=== PATIENT | male | born 1985 | race Caucasian/White ===

== ENCOUNTER 2018-07-29 10:48 | Outpatient (CLI) | payer OTHER ==
--- NOTE | 2018-07-29 12:28 | MRI ---
MRI OF RIGHT HIP PERFORMED WITHOUT CONTRAST ENHANCEMENT: HISTORY: Bilateral hip pain, left worse than right. FINDINGS: SI joints appear fairly symmetric. There is evidence for avascular necrosis of the right hip. There is a somewhat serpiginous T1 and T2 signal change involving the articular surface of the femoral head. There is no significant bony col lapse seen at this time. The femoral head maintains its fairly normal spherical shape. The gluteus minimus and medias tendon insertions appear unremarkable. IMPRESSION: Findings compatible with avascular necrosis of the right hip. POS: YOSVANY
--- NOTE | 2018-07-29 12:33 | MRI ---
LEFT HIP MRI WITHOUT IV CONTRAST: HISTORY: A 33-year-old male with a history of bilateral hip pain worse on the left. Multiplanar, multisequence MRI examination of the left hip is performed. There is extensive abnormal signal within the left femoral head, evidence for avascular necrosis with some subchondral collapse and extensive marrow edema extending into the femoral neck and into the intertrochanteric region. Th ere appears to be a small femoral bump of the femoral head and neck junction laterally, evidence for the possibility of some femoral acetabular impingement. Abnormal signal associated with the anterior labrum, evidence for an anterior labral tear. Evidence for some joint effusion. 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 Additionally, there is evidence for femoral acetabular impingement with associated anteri or labral tear. POS: MILLIE
== END 2018-07-29 10:49 | disposition home or self-care (01) ==
LOC: BICMRI 10:48
PROVIDERS: ATTEND Family Medicine
DX: M87.052 Idiopathic aseptic necrosis of left femur (principal)

== ENCOUNTER 2019-02-03 02:47 | Emergency (ER) | payer OTHER ==
[2019-02-03 13:53] LABS: HBSAB Concentration 0.15 mIU/mL; HIV (1/2) Antibody/Antigen Non-Reactive (NonReactive); HIV 1/2 INDEX 0.18 S/CO (<1.00); Hep B Surf AB Non-Reactive (NonReactive); Hep C IgG Ab Non-Reactive (NonReactive); Hep C Index 0.08 S/CO (0-0.79)
== END 2019-02-03 03:21 | disposition home or self-care (01) ==
LOC: SCSER 02:47
DX: Z77.21 Contact with and (suspected) exposure to potentially hazardous body fluids (principal); Z85.47 Personal history of malignant neoplasm of testis
CPT/HCPCS: 86706; 86803; 87389; 99283